=== PATIENT | female | born 1975 | race Caucasian/White ===

== ENCOUNTER 2020-04-14 14:42 | Outpatient (REF) | payer OTHER, SELFPAY ==
[2020-04-14 15:53] LABS: Alanine Aminotransferase 81 U/L (0-31); Albumin Level 4.3 g/dL (3.5-5.0); Alkaline Phosphatase 98 U/L (39-117); Aspartate Amino Transferase 51 U/L (5-31); Bilirubin Direct < 0.2 mg/dL (0.0-0.5); Bilirubin Total 0.3 mg/dL (0.0-1.0); Iron 49 mcg/dL (30-160); Percent Iron Saturation 13 % (15-50); Total Iron Binding Capacity 369 mcg/dL (228-428); Total Protein 7.4 g/dL (6.5-8.0); Unsaturated Iron Binding 320 ug/dL
[2020-04-14 16:14] LABS: Ferritin 113 ng/mL (10-250)
== END 2020-04-14 14:43 | disposition home or self-care (01) ==
LOC: HO.LAB 14:42
PROVIDERS: Visit Provider Internal Medicine
DX: R74.8 Abnormal levels of other serum enzymes (principal); K76.0 Fatty (change of) liver, not elsewhere classified
CPT/HCPCS: 36415; 80076; 82728; 83540

== ENCOUNTER 2020-04-28 09:30 | Day surgery (SDC) | payer OTHER, SELFPAY ==
[2020-04-21 15:10] VITALS: BMI 30.3
--- NOTE | 2020-04-27 07:56 | HO.ANESPROP2 ---
Documented by User: Janis Isaac 04/27/20 07:57 HPI - Anesthesia Eval Consult details Narrative: 44yo F for Upper Endoscopy PMFSH Past Medical History Medical History Back pain Elevated liver enzymes Fatty liver GERD (gastroesophageal reflux disease) History of chronic constipation History of kidney stones IBS (irritable bowel syndrome) Surgical History Surgical History History of endoscopic retrograde cholangiopancreatography History of liver biopsy Hx of cholecystectomy Social History Social History Are you a primary child care education coordinator to a significant other at home: No Do you presently have visiting nurse or other home services: No Smoking Status: Never smoker Use of substances other than those prescribed or required for medical reasons: No Have you been hit, kicked, punched, or otherwise hurt by someone within the past year? If so, by whom?: No Advance Directives: No Advance Directives Information Provided: No Advance Directives on File: No Recently lost weight without trying: No Meds Allergies Allergy/AdvReac Type Severity Reaction Status Date / Time No Known Allergies Allergy Unknown Unverified 04/21/20 15:06 Home Medications Medication Instructions Recorded Confirmed Last Taken Type cholecalciferol (vitamin D3) 1 tab PO DAILY 04/21/20 04/21/20 Unknown History cyclobenzaprine 1 tab PO TID PRN 04/21/20 04/21/20 Unknown History lidocaine 1 patch TRANSDERMAL DAILY PRN 04/21/20 04/21/20 Unknown History omeprazole 1 cap PO QAM 04/21/20 04/21/20 Unknown History ursodiol 2 cap PO BID 04/21/20 04/21/20 Unknown History Exam Exam Date and Time: April 27, 2020 0756 Height,Weight and Vital Signs: Height 5 ft 6 in Weight 85.275 kg Assessment and Plan Assessment Anesthesia Assessment: Chart Reviewed Documented by User: Ivana Adames 04/28/20 11:39 PMFSH Past Medical History Medical History Back pain Elevated liver enzymes Fatty liver GERD (gastroesophageal reflux disease) History of chronic constipation History of kidney stones IBS (irritable bowel syndrome) Surgical History Surgical History History of endoscopic retrograde cholangiopancreatography History of liver biopsy Hx of cholecystectomy Social History Social History Are you a primary child care education coordinator to a significant other at home: No Do you presently have visiting nurse or other home services: No Smoking Status: Never smoker Use of substances other than those prescribed or required for medical reasons: No Have you been hit, kicked, punched, or otherwise hurt by someone within the past year? If so, by whom?: No Advance Directives: No Advance Directives Information Provided: No Advance Directives on File: No Recently lost weight without trying: No Meds Allergies Allergy/AdvReac Type Severity Reaction Status Date / Time No Known Allergies Allergy Unknown Unverified 04/21/20 15:06 Home Medications Medication Instructions Recorded Confirmed Last Taken Type cholecalciferol (vitamin D3) 1 tab PO DAILY 04/21/20 04/21/20 Unknown History cyclobenzaprine 1 tab PO TID PRN 04/21/20 04/21/20 Unknown History lidocaine 1 patch TRANSDERMAL DAILY PRN 04/21/20 04/21/20 Unknown History omeprazole 1 cap PO QAM 04/21/20 04/21/20 Unknown History ursodiol 2 cap PO BID 04/21/20 04/21/20 Unknown History Exam Airway Mallampati Class: II TM Dist: >3cm Neck ROM: Full Loose/Missing/Broken Teeth: No Heart: RRR Lungs: CTA Assessment and Plan Assessment Anesthesia Assessment: Anesthesia Plan Discussed and Chart Reviewed Final Anesthetic Review NPO: Yes ASA Class: II Final Preanesthetic Review: Meds/Allgs Chart Reviewed, Consent Obtained/Reviewed and Anes Risks/Benef Reviewed Patient Risk: Low Procedure Risk: Intermediate Anesthetic Plan Anesthetic Plan: MAC: Disposition: Standard PACU
[2020-04-28 09:58] VITALS: BP 153/89; PULSE 82; RESP 16; TEMP 36.4; O2SAT 99
[2020-04-28 10:08] LABS: UPreg QC Valid YES; Urine Pregnancy NEGATIVE (NEGATIVE)
[2020-04-28] MEDS: Lactated Ringers 1,000 ML 100 ML IVCONT (10:17)
[2020-04-28 11:30] VITALS: BP 132/81; PULSE 73; RESP 16; TEMP 36.1; O2SAT 99
--- NOTE | 2020-04-28 11:32 | PM.OP ---
Brief Operative Note Date of Service: 04/28/20 Pre-op diagnosis: GERD Post-op diagnosis: other (Small hiatal hernia) Procedure: EGD Surgeon: Christoph Hou Anesthesia: MAC Estimated blood loss (mL): 0 Pathology: none sent Condition: stable Disposition: PACU
[2020-04-28 11:45] VITALS: BP 129/87; PULSE 80; RESP 18; TEMP 36.1; O2SAT 96
--- NOTE | 2020-04-28 12:12 | OP_ITS ---
SURGEON: Christoph Hou MD INDICATIONS: The patient presents for evaluation of gastroesophageal reflux. Full consent has been obtained from her for this, including risks of bleeding and perforation. PREOPERATIVE DIAGNOSIS: Gastroesophageal reflux. POSTOPERATIVE DIAGNOSIS: PROCEDURE PERFORMED: Esophagogastroduodenoscopy. ESTIMATED BLOOD LOSS: COMPLICATIONS: ANESTHESIA: Monitored anesthesia care. ASSISTANTS: SPECIMENS: POSTOPERATIVE DIAGNOSES: Gastroesophageal reflux, small hiatal hernia. DESCRIPTION OF PROCEDURE: The patient was placed in the left lateral decubitus position. The Olympus video gastroscope was passed in the posterior oropharynx and upper esophagus under direct vision. The scope was passed slowly into the distal esophagus. The gastroesophageal junction appeared normal at 36 cm. There was no sign of any esophagitis nor Dumont's esophagus. There was a small hiatal hernia. The scope entered into the stomach and was advanced to the pylorus. The duodenum was cannulated to the descending portion. The duodenum including the bulb appeared normal without mass or ulceration. The scope was withdrawn back into the stomach. The gastric antrum and body appeared normal with good peristalsis. Scope was retroflexed visualizing the proximal stomach carefully, which appeared normal, without any sign of mass or ulceration. The scope was straightened out and withdrawn back into the esophagus. The esophageal mucosa appeared normal. The scope was withdrawn from the patient. She tolerated the procedure well and was returned to the recovery area in stable condition. IMPRESSION: Small hiatal hernia, otherwise normal upper endoscopy. PLAN: The patient will continue her omeprazole once or twice a day for continued treatment of her reflux. She was advised to see me again by the fall for a followup of her history of fatty liver and elevated LFTs. Most recent liver enzymes in early April showed an AST of 51, ALT of 81 with a normal albumin, bilirubin, and alkaline phosphatase. I did advise to continue the Ursodiol. This has been discussed with her . MD RYDER Amin/JARRODL / [id number]
== END 2020-04-28 12:26 | disposition home or self-care (01) ==
PROVIDERS: Nurse Practitioner; Visit Provider Internal Medicine
PROC: 0DJ08ZZ Inspection of Upper Intestinal Tract, Via Natural or Artificial Opening Endoscopic (ICD-10-PCS; CPT 43235; principal; 2020-04-28 10:40)
DX: K21.9 Gastro-esophageal reflux disease without esophagitis (principal); K44.9 Diaphragmatic hernia without obstruction or gangrene; K76.0 Fatty (change of) liver, not elsewhere classified; Z90.49 Acquired absence of other specified parts of digestive tract; Z79.899 Other long term (current) drug therapy
CPT/HCPCS: 43235; 81025